=== PATIENT | female | born 1985 | race Caucasian/White ===

== ENCOUNTER 2016-08-20 17:53 | Emergency (ER) | payer MEDICAID ==
[2016-08-20 18:03] VITALS: TEMP 98.6
--- NOTE | 2016-08-20 18:18 | EDPHY ---
HPI/HX/ROS/PE/MDM Narrative: CHIEF COMPLAINT: Vomiting, dizziness. HPI: The patient is a 31-year-old female who presents with dizziness and vomiting for the past 4 days. She started Paxil a week ago and is concerned she is reacting poorly to the medication. She developed nausea soon after starting the medicine and then the dizziness and vomiting began. The dizziness is described as the world shaking back and forth. She admits fever of 101 and intermittent diarrhea. She denies abdominal pain, urinary symptoms, or other complaints. REVIEW OF SYSTEMS: Aside from elements discussed in the HPI, a comprehensive 10-point review of systems was reviewed and is negative. PMH: Depression, pyelonephritis, hypothyroidism, asthma. 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 PHYSICAL EXAM: General: Patient is alert, in no acute distress. ENT: Eyes are normal to inspection. ENT inspection normal. Neck: Normal inspection. Full range of motion. Respiratory: No respiratory distress. Breath sounds normal bilaterally. Cardiovascular: Regular rate and rhythm. Strong peripheral pulses. Abdomen: The abdomen is nontender to deep palpation. There are no peritoneal signs. There are normal bowel sounds. Back: Normal to inspection. No tenderness to palpation. Skin: Normal color. No rash. Warm and dry. Extremities: Normal appearance. Full range of motion. Neuro: Oriented x3. Normal motor function. Normal sensory function. Normal figner to nose. No cerebellar deficits. Portions of this note were transcribed by an ED scribe. I personally performed the history, physical exam, and medical decision making; and confirm the accuracy of the information in the transcribed note. ED Course: An IV was established and labs ordered. 1L IV saline and 4mg IV Zofran administered for dehydration and nausea. MDM: This is a young healthy patient who presents with several days of nausea and diarrhea. She attributes her symptoms to recently starting a new medication, Paxil. I explained to the patient that low-grade fever, vomiting and diarrhea are not typical adverse reactions to this medication and that this suggests potentially gastroenteritis. The patient does not complain of abdominal pain and her abdomen is completely nontender. We performed an extensive workup on her in the emergency department which is negative. The patient has no focal neurologic signs. The patient initially refused Zofran, stating that she had an allergy to Zofran which she described as making her feel more nauseous without any actual anaphylactic type symptoms. She was able to tolerate IV Zofran without difficulty. After observation in the emergency department for approximately 5 hours with treatment consisting of Zofran, meclizine, Ativan and IV normal saline, the patient feels better but states she does not feel back to normal. She is requesting to be admitting to the hospital overnight. I explained to her that there is no medical indication for this. I see no signs of acute abdominal process, stroke, meningitis, significant dehydration or infectious diarrhea. The patient has not had any episodes of diarrhea here, nor any witnessed vomiting. I have agreed to send her home with a take-home pack of Phenergan. She understands that she may need to return to the emergency department should her symptoms continue. The patient is ambulatory without assistance, and checking her phone in the room on each re-evaluation. - Data Points Laboratory Results: Laboratory Results 08/20/16 19:40 08/20/16 19:40 08/20/16 08/20/16 08/20/16 19:40 19:40 19:40 WBC 10.96 10^3/uL H 10^3/uL (3.80-9.50) RBC 5.07 10^6/uL 10^6/uL (4.18-5.33) Hgb 14.6 g/dL g/dL (12.6-16.3) Hct 42.3 % % (38.0-47.0) MCV 83.4 fL fL (81.5-99.8) MCH 28.8 pg pg (27.9-34.1) MCHC 34.5 g/dL g/dL (32.4-36.7) RDW 12.5 % % (11.5-15.2) Plt Count 326 10^3/uL 10^3/uL (150-400) MPV 9.7 fL fL (8.7-11.7) Neut % (Auto) 62.9 % % (39.3-74.2) Lymph % (Auto) 30.2 % % (15.0-45.0) Caroline % (Auto) 5.4 % % (4.5-13.0) Eos % (Auto) 0.8 % % (0.6-7.6) Baso % (Auto) 0.4 % % (0.3-1.7) Nucleat RBC Rel Count 0.0 % % (0.0-0.2) Absolute Neuts (auto) 6.90 10^3/uL H 10^3/uL (1.70-6.50) Absolute Lymphs (auto) 3.31 10^3/uL H 10^3/uL (1.00-3.00) Absolute Monos (auto) 0.59 10^3/uL 10^3/uL (0.30-0.80) Absolute Eos (auto) 0.09 10^3/uL 10^3/uL (0.03-0.40) Absolute Basos (auto) 0.04 10^3/uL 10^3/uL (0.02-0.10) Absolute Nucleated RBC 0.00 10^3/uL 10^3/uL (0-0.01) Immature Gran % 0.3 % % (0.0-1.1) Immature Gran # 0.03 10^3/uL 10^3/uL (0.00-0.10) Sodium 138 mEq/L mEq/L (134-144) Potassium 4.5 mEq/L mEq/L (3.5-5.2) Chloride 109 mEq/L mEq/L (97-110) Carbon Dioxide 16 mEq/l L mEq/l (22-31) Anion Gap 13 mEq/L mEq/L (8-16) BUN 10 mg/dL mg/dL (7-23) Creatinine 0.6 mg/dL mg/dL (0.6-1.0) Estimated GFR > 60 Glucose 82 mg/dL mg/dL (70-100) Calcium 9.3 mg/dL mg/dL (8.5-10.4) Beta HCG, Qual NEGATIVE Medications Given: Discontinued Medications Sodium Chloride (Ns) 1,000 mls @ 0 mls/hr IV ONCE ONE PRN Reason: Wide Open Stop: 08/20/16 18:23 Last Admin: 08/20/16 19:02 Dose: 1,000 mls Lorazepam (Ativan Injection) 0.5 mg IVP EDNOW ONE Stop: 08/20/16 21:40 Last Admin: 08/20/16 21:45 Dose: 0.5 mg Meclizine HCl (Meclizine Hcl) 50 mg PO EDNOW ONE Stop: 08/20/16 21:40 Last Admin: 08/20/16 21:45 Dose: 50 mg Ondansetron HCl (Zofran) 4 mg IVP EDNOW ONE Stop: 08/20/16 18:23 Last Admin: 08/20/16 19:26 Dose: Not Given Ondansetron HCl (Zofran) 4 mg IVP EDNOW ONE Stop: 08/20/16 20:32 Last Admin: 08/20/16 20:31 Dose: 4 mg General Time Seen by Provider: 08/20/16 18:11 Initial Vital Signs: Initial Vital Signs Temperature (C) 37 C 08/20/16 17:59 Heart Rate 85 08/20/16 17:59 Respiratory Rate 18 08/20/16 17:59 Blood Pressure 121/106 H 08/20/16 17:59 O2 Sat (%) 98 08/20/16 17:59 O2 Delivery Mode Room Air Allergies/Adverse Reactions: No Known Allergies Allergy (Unverified 12/31/14 18:37) Home Medications: Medication Instructions Recorded Inhaler, Assist Devices 08/20/16 PARoxetine CR 08/20/16 Vestura 3 mg-0.02 mg Tablet 08/20/16 Departure - Departure Disposition: Home, Routine, Self-Care Clinical Impression: Nausea Condition: Good Instructions: Acute Nausea and Vomiting (ED) Additional Instructions: Drink plenty of clear fluids. Increase diet slowly over the next 24 hours as tolerable. Follow up with your psychiatrist tomorrow for medication reevaluation. Return to the emergency department if you experience any serious worsening of condition. Referrals: BERE NIEVES [Primary Care Provider] - As per Instructions Report Scribed for: Fernando Mi Report Scribed by: Kirk Jones Date of Report: 08/20/16 Time of Report: 18:12
[2016-08-20] MEDS ORDERED: NS 1,000 ML IV ONE (18:22)
[2016-08-20] MEDS ORDERED: ONDANSETRON 4 MG/2 ML VIAL IVP ONE ×2 (18:22→20:31)
[2016-08-20 19:46] LABS: % IMMATURE GRANULYOCYTES 0.3 % (0.0-1.1); ABSOLUTE IMMATURE GRANULOCYTES 0.03 10^3/uL (0.00-0.10); ADD DIFF? NO; ADD MORPH? NO; ADD SCAN? NO; ATYPICAL LYMPHOCYTE FLAG 0 (0-99); FRAGMENT RBC FLAG 0 (0-99); HEMATOCRIT 42.3 % (38.0-47.0); HEMOGLOBIN 14.6 g/dL (12.6-16.3); LEFT SHIFT FLG 0 (0-99); LIPEMIA HEMOLYSIS FLAG 90 (0-99); MEAN CELL HEMOGLOBIN 28.8 pg (27.9-34.1); MEAN CELL HEMOGLOBIN CONCENTR. 34.5 g/dL (32.4-36.7); MEAN CELL VOLUME 83.4 fL (81.5-99.8); MEAN PLATELET VOLUME 9.7 fL (8.7-11.7); PLATELET CLUMPS FLAG 0 (0-99); PLATELET COUNT 326 10^3/uL (150-400); RED BLOOD CELL COUNT 5.07 10^6/uL (4.18-5.33); RED CELL DISTRIBUTION WIDTH 12.5 % (11.5-15.2)
[2016-08-20 19:57] LABS: ANION GAP 13 mEq/L (8-16); CALCIUM 9.3 mg/dL (8.5-10.4); CARBON DIOXIDE 16 mEq/l (22-31); CHLORIDE 109 mEq/L (97-110); CREATININE 0.6 mg/dL (0.6-1.0); GLOMERULAR FILTRATION RATE > 60; GLUCOSE 82 mg/dL (70-100); POTASSIUM 4.5 mEq/L (3.5-5.2); SODIUM 138 mEq/L (134-144)
[2016-08-20] MEDS ORDERED: ONDANSETRON 4MG PREPACK#2 BTL TAKEHOME ONE (20:02)
[2016-08-20] MEDS ORDERED: ONDANSETRON 4 MG/2 ML VIAL ONE (20:20)
[2016-08-20] MEDS ORDERED: MECLIZINE HCL 25 MG TAB PO ONE (21:39)
[2016-08-20] MEDS ORDERED: LORazepam 2 MG/ML INJ IVP ONE (21:39)
[2016-08-20 22:37] VITALS: BP 137/84; PULSE 83; RESP 20; O2SAT 94
[2016-08-20] MEDS ORDERED: PROMETHAZINE 25 MG PREPACK #4 BTL TAKEHOME ONE (22:48)
== END 2016-08-20 23:19 | disposition home or self-care (01) ==
DX: R11.0 Nausea (principal); J45.909 Unspecified asthma, uncomplicated
CPT/HCPCS: 96374; J2060; J2405

== ENCOUNTER 2016-10-10 14:31 | Emergency (ER) | payer MEDICAID ==
[2016-10-10 14:37] VITALS: RESP 16
--- NOTE | 2016-10-10 14:55 | EDPHY ---
H & P Stated Complaint: KAMI EYES BURNING, ? EXPOSURE TO VIRAL INFECTION HPI/ROS: HPI CHIEF COMPLAINT: Bilateral eye burning, drainage, crusty discharge HISTORY OF PRESENT ILLNESS: This patient very pleasant 31-year-old female, presents to the emergency room with burning of her bilateral eyes, I recently saw her grandmother with similar complaints over the weekend diagnosed with conjunctivitis. Viral versus bacterial. Patient was placed on cipro eyedrops her primary care doctor changed her over to polymixin. Her granddaughter presents emergency room with 1 day of burning of bilateral eyes, conjunctival injection and some drainage. No fever. No significant swelling. No significant pain with extraocular movements. No visual disturbance no loss of vision. Past Medical History: Depression, hypothyroidism, asthma, pyelonephritis Past Surgical History: No recent surgical history Social History: Denies daily use of drugs alcohol tobacco products Family History: Noncontributory ROS REVIEW OF SYSTEMS: A comprehensive 10 point review of systems is otherwise negative aside from elements mentioned in the history of present illness. Exam Constitutional appears well nontoxic, triage nursing summary reviewed, vital signs reviewed, awake/alert. Eyes bilateral conjunctival slight injection, no significant crusting or drainage at this time, extra movements intact people urinary tract life, anterior chamber normal, posterior chamber without dilatation normal. HENT normal inspection, atraumatic, moist mucus membranes, no epistaxis, neck supple/ no meningismus, no raccoon eyes. Respiratory clear to auscultation bilaterally, normal breath sounds, no respiratory distress, no wheezing. Cardiovascular rate normal, regular rhythm, no murmur, no edema, distal pulses normal. Gastrointestinal soft, non-tender, no rebound, no guarding, normal bowel sounds, no distension, no pulsatile mass. Genitourinary no CVA tenderness. Musculoskeletal no midline vertebral tenderness, full range of motion, no calf swelling, no tenderness of extremities, no meningismus, good pulses, neurovascularly intact. Skin pink, warm, & dry, no rash, skin atraumatic. Neurologic awake, alert and oriented x 3, AAOx3, moves all 4 extremities equally, motor intact, sensory intact, CN II-XII intact, normal cerebellar, normal vision, normal speech. Psychiatric normal mood/affect. Heme/Lymph/Immune no lymphadenopathy. Differential Diagnosis: Includes but is not limited to in a particular order, viral conjunctivitis, bacterial conjunctivitis, chemical reaction, allergies Medical Decision Making: Plan for patient placed on polymyxin eyedrops. Close follow-up with her primary care doctor referred Ophthalmology if worsening symptoms. She understands. Re-evaluation: Prescription given for polymyxin. Source: Patient - Personal History LMP (Females 10-55): Over 28 Days Ago Current Tetanus Diphtheria and Acellular Pertussis (TDAP): Yes - Medical/Surgical History Hx Asthma: Yes Hx Chronic Respiratory Disease: No Hx Diabetes: No Hx Cardiac Disease: No Hx Renal Disease: No Hx Cirrhosis: No Hx Alcoholism: No Hx HIV/AIDS: No Hx Splenectomy or Spleen Trauma: No Other PMH: hypothyroid; kidney infection; miscarraige. Depression - Social History Smoking Status: Never smoked Constitutional: Initial Vital Signs Temperature (C) 36.6 C 10/10/16 14:35 Heart Rate 71 10/10/16 14:35 Respiratory Rate 16 10/10/16 14:35 Blood Pressure 123/82 H 10/10/16 14:35 O2 Sat (%) 97 10/10/16 14:35 O2 Delivery Mode Room Air Allergies/Adverse Reactions: No Known Allergies Allergy (Unverified 12/31/14 18:37) Home Medications: Medication Instructions Recorded Inhaler, Assist Devices 08/20/16 Vestura 3 mg-0.02 mg Tablet 08/20/16 Antidepressant 10/10/16 Macrobid 10/10/16 Neomycin/Polymyxin B/Dexametha 5 ml OP QID #1 drops.susp 10/10/16 [Cbvbci-Ifutl-Csxercuc Eye Drop] Departure - Departure Disposition: Home, Routine, Self-Care Clinical Impression: Conjunctivitis Qualifiers: Conjunctivitis type: acute Acute conjunctivitis type: unspecified Laterality: bilateral Qualified Code(s): H10.33 - Unspecified acute conjunctivitis, bilateral Instructions: Conjunctivitis (ED) Additional Instructions: 1. Return emergency room if you have any worsening symptoms questions or concerns. 2. Please follow up with Ophthalmology if her symptoms do not get better. Referrals: BERE NIEVES [Primary Care Provider] - As per Instructions Magy Jean MD [Medical Doctor] - As per Instructions Prescriptions: Neomycin/Polymyxin B/Dexametha [Bxboql-Tdqhz-Zoypmdus Eye Drop] 5 ml OP QID #1 drops.susp
[2016-10-10 15:22] VITALS: BP 110/74; PULSE 80; TEMP 98.4; O2SAT 94
== END 2016-10-10 15:21 | disposition home or self-care (01) ==
DX: H10.33 Unspecified acute conjunctivitis, bilateral (principal); J45.909 Unspecified asthma, uncomplicated

== ENCOUNTER 2017-05-15 20:20 | Emergency (ER) | payer MEDICAID ==
[2017-05-15 20:30] VITALS: RESP 16; TEMP 98.2
--- NOTE | 2017-05-15 21:01 | EDPHY ---
H & P Stated Complaint: says she stepped on a concrete step that broke - fell twisting both ankles Time Seen by Provider: 05/15/17 20:57 HPI/ROS: HPI: This is a 31-year-old female who presents with Chief Complaint: Left ankle, right ankle, left wrist injury Location: Left ankle Quality: Injury Duration: 2-3 hr prior to arrival Signs and Symptoms: No bleeding, no radiation, no numbness, no weakness, no tingling, no incontinence, + decreased range of motion, + swelling, + pain Timing: Sudden, worse with weight-bearing Severity: [id number] Context: Patient presents with complaints of stepping on a concrete step that broke and as she fell she twisted her ankles. Left ankle hurts right ankle worse. Reports left lateral ankle pain and swelling that is worse with weight- bearing nonradiating in nature. She believes that she broke her fall with her left hand and has some small, superficial abrasion on the palmar aspect. Reports that her left wrist has full range of motion does that is broken. Right -hand dominant. Denies LOC/head injury/neck pain/paresthesias/skin color changes. Has not taken any iqum-[id number] pain medications or applied ice. Modifying Factors: None Comment: ROS: see HPI Constitutional: No fever, no chills, no weight loss Eyes: No blurred vision Respiratory: No shortness of breath, no cough Cardiovascular: No chest pain Gastrointestinal: No nausea, no vomiting no diarrhea Genitourinary: No dysuria Extremities: No myalgias Neurologic: No weakness, no numbness Skin: No rashes Hematologic: No bruising, no bleeding MEDICAL/SURGICAL/SOCIAL HISTORY: Medical history: hypothyroid; kidney infection; miscarriage. Depression, bifrontal cerebral atrophy, asthma, fatty liver disease Social history: . CONSTITUTIONAL: Obese white female with Pella colored hair, awake and alert, no obvious distress HEENT: Atraumatic and normocephalic. NECK: supple, no midline tenderness, flexion 45 degrees, extension 45 degrees, right and left lateral flexion 45 degrees. No meningismus. Cardiovascular: Normal S1/S2, regular rate, regular rhythm, without murmur rub or gallop. PULMONARY/CHEST: Symmetrical and nontender. no crepitus. Clear to auscultation bilaterally. Good air movement. No accessory muscle usage. ABDOMEN: Soft, nondistended, nontender, no ecchymosis. PELVIC: no pain with rocking; bilateral hips flexion 125 degrees, extension 30 degrees, with no pain internal rotation and no pain external rotation. BACK: No midline tenderness, no paraspinous spasm, deep tendon reflexes 2/2, no pain with straight leg raise EXTREMITIES: 2/2 DP/PT/radial pulses, left WRIST: Extension to 70, flexion to 80, radial deviation to 20 degree, ulnar deviation to 30, no scaphoid tenderness, no tenderness over ulnar styloid, no tenderness over radial styloid. Right Ankle; Plantar flexion to 50, dorsiflexion to 20. Foot inversion to 35 degree. Moderate tenderness and swelling Anterior talofibular ligament. No tenderness Calcaneofibular ligament, no tenderness posterior talofibular ligament., no tenderness posterior inferior tibiofibular ligament Achilles tendon intact. Left Ankle; Plantar flexion to 50, dorsiflexion to 20 . Foot inversion to 35 degree. Anterior talofibular ligament. Moderate tenderness and swelling Calcaneofibular ligament, moderate tenderness and swelling posterior talofibular ligament, minimal tenderness posterior inferior tibiofibular ligament. Achilles tendon intact. no deformities, no clubbing, no cyanosis or edema. NEUROLOGICAL: no focal neuro deficits. GCS 15. Light touch sensation intact. SKIN: Warm and dry, no erythema. no rash. Good capillary refill. Source: Patient Exam Limitations: No limitations - Medical/Surgical History Hx Asthma: Yes Hx Chronic Respiratory Disease: No Hx Diabetes: No Hx Cardiac Disease: No Hx Renal Disease: No Hx Cirrhosis: No Hx Alcoholism: No Hx HIV/AIDS: No Hx Splenectomy or Spleen Trauma: No Other PMH: hypothyroid; kidney infection; miscarraige. Depression, bifrontal cerebral atrophy, asthma, fatty liver disease - Social History Smoking Status: Never smoked Constitutional: Initial Vital Signs Temperature (C) 36.8 C 05/15/17 20:24 Heart Rate 82 05/15/17 20:24 Respiratory Rate 16 05/15/17 20:24 Blood Pressure 123/90 H 05/15/17 20:24 O2 Sat (%) 96 05/15/17 20:24 O2 Delivery Mode Room Air Allergies/Adverse Reactions: ondansetron [From Zofran (as hydrochloride)] Allergy (Verified 05/15/17 20:31) venlafaxine [From Effexor] Allergy (Verified 05/15/17 20:31) unk laundry detergent Allergy (Uncoded 05/15/17 20:31) Home Medications: Medication Instructions Recorded Inhaler, Assist Devices 08/20/16 Vestura 3 mg-0.02 mg Tablet 08/20/16 Antidepressant 10/10/16 Macrobid 10/10/16 Neomycin/Polymyxin B/Dexametha 5 ml OP QID #1 drops.susp 10/10/16 [Yashfg-Kwbsl-Wojhrosv Eye Drop] Medical Decision Making - Diagnostics Imaging Results: Imaging Impressions Ankle X-Ray 05/15/17 21:06 Impression: Negative. No acute fracture. Wrist X-Ray 05/15/17 21:06 Impression: Negative. No acute fracture. Ankle X-Ray 05/15/17 21:19 Impression: Negative. No acute fracture. ED Course/Re-evaluation: Left wrist x-ray, bilateral ankle x-rays ordered Ice pack applied No signs of neurovascular compromise/tenting of skin/compartment syndrome/ extremities and joints examined above and below area of concern and are neurovascularly intact. Left wrist x-ray reviewed and shows no fracture/dislocation Left ankle x-ray reviewed and shows no fracture/dislocation; soft tissue swelling noted Right ankle x-ray reviewed and shows no fracture/dislocation Placed in left walking boot due to large body habitus; given crutches; weight- bearing as tolerated Advised RICE At discharge, nursing notified the patient is requesting a walking boot for her right lower extremity as well for her comfort. Walking boot order on the right as well as left lower extremity now. This patient was seen under the supervision of my secondary supervising physician. I evaluated care for this patient independently. Discussed this patient with Dr. Rodriguez who did not see the patient. Differential Diagnosis: Differential diagnosis includes but is not limited to sprain, nerve injury, ligament injury, LeFranc fracture, radial fracture, ulnar fracture. - Data Points Medications Given: Discontinued Medications Tramadol HCl (Ultram) 50 mg PO EDNOW ONE Stop: 05/15/17 21:45 Last Admin: 05/15/17 21:54 Dose: 50 mg Departure - Departure Disposition: Home, Routine, Self-Care Clinical Impression: Grade 2 ankle sprain Qualifiers: Encounter type: initial encounter Laterality: left Qualified Code(s): S93.402A - Sprain of unspecified ligament of left ankle, initial encounter Condition: Good Instructions: Ankle Sprain (DC), Ankle Stirrup Splint (ED) Additional Instructions: Wear the walking boot while out of bed until pain free or follow up with Orthopedics. Take Tylenol 650 mg every 4 hours and/or Ibuprofen 600 mg every 8 hours with food as needed for pain. Apply ice for 30 minutes at a time; 2-3 times per day for the next 1-2 days. Follow up with Orthopedics in 7-10 days if symptoms persist or worsen at which time they will evaluate and recommend with you if conservative management versus further imaging like MRI is indicated. The x-rays obtained in the emergency department today demonstrate no evidence of an obvious fracture. Sometimes fractures are not obvious on the initial set of x-rays performed in the ED. For this reason, you should have repeat x-rays performed in 7-10 days if you are having any pain exclude the possibility of an occult fracture. Referrals: Bobby Maldonado MD [Medical Doctor] - As per Instructions
[2017-05-15] MEDS ORDERED: traMADol 50 MG TAB PO ONE (21:44)
[2017-05-15 22:09] VITALS: BP 123/87; PULSE 80; O2SAT 97
== END 2017-05-15 22:43 | disposition home or self-care (01) ==
DX: S93.402A Sprain of unspecified ligament of left ankle, initial encounter (principal); J45.909 Unspecified asthma, uncomplicated; W18.39XA Other fall on same level, initial encounter; Y99.8 Other external cause status; Y93.89 Activity, other specified
CPT/HCPCS: L4386

== ENCOUNTER 2018-10-16 00:19 | Emergency (ER) | payer MEDICAID ==
[2018-10-16] MEDS ORDERED: OXYCODONE/APAP 5/325 TAB PO ONE (00:55)
--- NOTE | 2018-10-16 00:55 | EDPHY ---
H & P Stated Complaint: recient gallbladder removal, lower abdo pain Time Seen by Provider: 10/16/18 00:20 HPI/ROS: Chief Complaint: Abdominal pain HPI: 33-year-old woman who is 1 week status post elective cholecystectomy at [facility]. Patient began having worsening pain early at 6:00 a.m. This morning. She was seen at [facility] and states she had blood work and a CT scan done. She was told that the CT scan was negative that time was sent home. Patient is continuing to have pain. She is concerned tonight because she noticed sat 1 however incisions may have opened up. She states she last took ibuprofen about 8:00 a.m. This evening. No nausea vomiting or diarrhea. Some subjective chills but did not take her temperature at home. ROS: 10 systems were reviewed and were negative except those elements noted in the HPI. PMH: Cholecystectomy, opioid dependence. Social History: No smoking, no alcohol, no recreational drug use Family History: non-contributory Physical Exam: Gen: Awake, Alert, No Distress HEENT: Nose: no rhinorrhea Eyes: PERRLA, EOMI Mouth: Moist mucosa Neck: Supple, no JVD Chest: nontender, lungs clear to auscultation Heart: S1, S2 normal, no murmur Abd: Obese, Soft, mild diffuse tenderness, intact incisions. There is 1 incision that appears that the skin adhesive has been removed. The incision is closed. There is no active bleeding. There is no discharge. There is no erythema. Back: no CVA tenderness, no midline tenderness Ext: no edema, non-tender Skin: no rash Neuro: CN II-XII intact, Sensation grossly intact, Strength 5/5 in bilateral upper and lower extremities - Personal History LMP (Females 10-55): 15-21 Days Ago Current Tetanus/Diphtheria Vaccine: Yes Current Tetanus Diphtheria and Acellular Pertussis (TDAP): Yes - Medical/Surgical History Hx Asthma: Yes Hx Chronic Respiratory Disease: No Hx Diabetes: No Hx Cardiac Disease: No Hx Renal Disease: No Hx Cirrhosis: No Hx Alcoholism: No Hx HIV/AIDS: No Hx Splenectomy or Spleen Trauma: No Other PMH: hypothyroid; kidney infection; miscarraige. Depression, bifrontal cerebral atrophy, asthma, fatty liver disease - Social History Smoking Status: Never smoked Constitutional: Initial Vital Signs Temperature (C) 36.9 C 10/16/18 00:25 Heart Rate 96 10/16/18 00:25 Respiratory Rate 16 10/16/18 00:25 Blood Pressure 124/90 H 10/16/18 00:25 O2 Sat (%) 95 10/16/18 00:25 O2 Delivery Mode Room Air Allergies/Adverse Reactions: ondansetron [From Zofran (as hydrochloride)] Allergy (Verified 10/16/18 00:25) venlafaxine [From Effexor] Allergy (Verified 10/16/18 00:25) unk laundry detergent Allergy (Uncoded 10/16/18 00:25) Home Medications: Medication Instructions Recorded Clonazepam 10/16/18 Seroquel 10/16/18 Sertraline HCl 10/16/18 Medical Decision Making ED Course/Re-evaluation: I have reviewed the patient's records from [facility]. She had a normal CT scan of the abdomen. Laboratory evaluations were unremarkable. She did have some constipation. I have treated her with Percocet here. We discussed at great length the need to treat her constipation including taking magnesium citrate daily if necessary. Patient is improved. Pain is better. She is tolerating p. O.. We discussed again treating her constipation appropriately. She will follow up with primary care physician surgeon as an outpatient. - Data Points Medications Given: Discontinued Medications Oxycodone/Acetaminophen (Percocet 5/325) 2 tab PO EDNOW ONE Stop: 10/16/18 00:56 Last Admin: 10/16/18 01:02 Dose: 2 tab Departure - Departure Disposition: Home, Routine, Self-Care Clinical Impression: Constipation, Abdominal pain Condition: Good Instructions: Constipation (ED), Abdominal Pain (ED) Additional Instructions: Please try to limit the opioid pain medication as I think this is contributing significantly to her constipation which is causing greater pain. Increase the fiber in your diet, either through increasing high-fiber fruits and vegetables or adding a fiber supplement like Metamucil. Make sure to drink plenty of water every day. You may take MiraLax daily according to package instructions. If you feel constipated drink 1/2 bottle of magnesium citrate. Wait 1-2 hours. If you do not have a bowel movement after that time drink the 2nd half of the bottle. If you continues to be constipated you may use a Fleet's enema, available over- the-counter. Follow up with your surgeon or primary care physician in 2-3 days for further evaluation. Referrals: BERE NIEVES [Primary Care Provider] - As per Instructions
[2018-10-16 02:24] VITALS: BP 131/80
[2018-10-16] MEDS ORDERED: MAGNESIUM CITRATE 300 ML BOTTLE PO ONE (02:36)
[2018-10-16] MEDS ORDERED: OXYCODONE/APAP 5/325MG PREPACK#4 BTL TAKEHOME ONE (02:36)
== END 2018-10-16 02:58 | disposition home or self-care (01) ==
DX: K59.00 Constipation, unspecified (principal); Z90.49 Acquired absence of other specified parts of digestive tract